=== PATIENT | male | born 1955 | race Caucasian/White ===

== ENCOUNTER → 2016-05-11 | Outpatient (CLI) | payer MEDICARE | LOC: HEART 5 10:47 | DX: J44.9 Chronic obstructive pulmonary disease, unspecified (principal); F17.210 Nicotine dependence, cigarettes, uncomplicated; R94.2 Abnormal results of pulmonary function studies | CPT/HCPCS: 94060; 94729 ==

== ENCOUNTER → 2021-07-31 | Day surgery (SDC) | payer MEDICARE ==
[~2021-07-31] MED LIST: ADVAIR 250-501 EACH INH; ALBUTEROL2.5 MG/3 M INH; FLOMAX 0.4 MG0.4 MG PO; GLUCOPHAGE1000 MG PO; KENALOG CREAM 015 GM TOP; LOPRESSOR 25 MG25 MG PO; MELOXICAM15 MG PO; MIRALAX17 GM PO; MS CONTIN TAB S30 MG PO; NARCAN4 MG INH; OXYCODONE HCL E10 MG PO; PRAVASTATIN SOD10 MG PO; PROAIR HFA8.5 GM INH; SILDENAFIL20 MG PO; TIZANIDINE HCL4 M1 PO; VITAMIN B-121000 MCG PO; VITAMIN D325 MCG GT; ZYRTEC10 M3 PO; ZYRTEC10 MG PO
== END | disposition home or self-care (01) ==
LOC: OR 07:07
DX: D50.9 Iron deficiency anemia, unspecified (principal); R19.5 Other fecal abnormalities; K59.03 Drug induced constipation; J44.9 Chronic obstructive pulmonary disease, unspecified; K25.9 Gastric ulcer, unspecified as acute or chronic, without hemorrhage or perforation; K57.30 Diverticulosis of large intestine without perforation or abscess without bleeding; K64.4 Residual hemorrhoidal skin tags; D01.2 Carcinoma in situ of rectum; I12.9 Hypertensive chronic kidney disease with stage 1 through stage 4 chronic kidney disease, or unspecified chronic kidney disease; E11.22 Type 2 diabetes mellitus with diabetic chronic kidney disease; N18.9 Chronic kidney disease, unspecified; E66.8 Other obesity; Z68.31 Body mass index [BMI] 31.0-31.9, adult; Z88.1 Allergy status to other antibiotic agents
CPT/HCPCS: 82962; 94664; J2704; J7040